=== PATIENT | female | born 1935 | race Hispanic/Latino ===

== ENCOUNTER 2017-12-25 11:39 | Emergency (ER) | payer OTHER, MEDICARE ==
[~2017-12-25 11:39] MED LIST: ALBU8.5H8 IH; AMLO2.5T PO; ASPI-555 PO; ATORVASTATIN PO; BRIM5DRO OU; ESOM40CA PO; LUMIGAN OU; MELO-108 PO; METOPROLOL PO; NITR0.4T SL; RANO500T2 PO; TOLT1TAB13 PO; TOLTERODINE PO; TRAM50TA4 PO
[2017-12-25 12:19] LABS: BASOPHILS % (AUTO) 0.5 % (0.0-5.0); HEMATOCRIT 33.7 % (36-48); LYMPHOCYTES % (AUTO) 16.5 % (21.0-51.0); MEAN CORPUSCULAR HEMOGLOBIN 33.5 pg (27.0-33.0); MEAN CORPUSCULAR VOLUME 95.7 fL (79-99); MONOCYTES % (AUTO) 6.8 % (3.0-13.0); NEUTROPHILS % (AUTO) 74.2 % (40.0-77.0); NUCLEATED RED BLOOD CELLS 0.1 % (0.0-0.19); PLATELET COUNT (AUTO) 143 K/uL (130-400); RED BLOOD CELL COUNT(AUTO) 3.53 MIL/uL (4.00-5.50); RED CELL DISTRIBUTION WIDTH 14.8 % (11.0-15.5); WHITE BLOOD COUNT (AUTO) 4.7 K/uL (4.8-10.8)
[2017-12-25 12:23] LABS: APPEARANCE,URINE Clear (CLEAR); BILIRUBIN,URINE Negative (NEGATIVE); COLOR,URINE Yellow (YELLOW); GLUCOSE, URINE (UA) Negative (NEGATIVE); KETONES,URINE Negative (NEGATIVE); LEUKOCYTE ESTERASE ,URINE Negative (NEGATIVE); NITRATE,URINE Negative (NEGATIVE); OCCULT BLOOD,URINE Negative (NEGATIVE); PH,URINE 5.5 (5.0-8.0); PROTEIN,URINE Negative (NEGATIVE); UROBILINOGEN,URINE 0.2 mg/dL (0.2-1.0)
[2017-12-25 12:28] LABS: CREATININE 1.3 mg/dL (0.5-1.5); POTASSIUM 4.6 mmol/L (3.5-5.1)
[2017-12-25 12:33] LABS: ALBUMIN 3.4 g/dL (3.5-5.0); BILIRUBIN,TOTAL 0.4 mg/dL (0.2-1.0); TOTAL PROTEIN, SERUM 7.2 g/dL (6.0-8.3)
[2017-12-25] MEDS ORDERED: KETOROLAC TROMETHAMINE 15MG/ML ONE (13:19)
[2017-12-25] MEDS ORDERED: ONDANSETRON HCL 4 MG/2 ML VIAL ONE (13:19)
[2017-12-25] MEDS ORDERED: MORPHINE SULFATE 2 MG/ML 1ML SYG ONE (13:20)
[2017-12-25] MEDS ORDERED: IOPAMIDOL-370 75 ML VIAL IV ONE (15:02)
== END 2017-12-25 17:09 | disposition home or self-care (01) ==
LOC: EDH 11:39
DX: R10.9 Unspecified abdominal pain (principal); L84 Corns and callosities; R35.0 Frequency of micturition; M54.9 Dorsalgia, unspecified; E78.5 Hyperlipidemia, unspecified; I10 Essential (primary) hypertension; Z90.710 Acquired absence of both cervix and uterus
CPT/HCPCS: 36415; 73620; 74177; 80053; 81003; 85025; 96374; 96375; 99285; J1885; J2405; Q9967

== ENCOUNTER → 2019-03-24 | Outpatient (CLI) | payer OTHER, MEDICARE ==
[~2019-03-24] MED LIST changes: -AMLO2.5T PO; +AMLO2.5T4 PO
== END | disposition home or self-care (01) ==
LOC: SHCH 10:48
PROVIDERS: ATTEND Internal Medicine Cardiovascular Disease
DX: I73.9 Peripheral vascular disease, unspecified (principal)
CPT/HCPCS: 93925

== ENCOUNTER 2019-08-04 10:59 | Emergency (ER) | payer OTHER, MEDICARE ==
[2019-08-04] MEDS ORDERED: SODIUM CHLORIDE 0.9% 1000ML 1,000 ML IV ONE (13:12)
[2019-08-04] MEDS ORDERED: ONDANSETRON HCL 4 MG/2 ML VIAL ONE (13:13)
[2019-08-04] MEDS ORDERED: MORPHINE SULFATE 2 MG/ML 1ML SYG ONE (13:14)
[2019-08-04] MEDS ORDERED: IOHEXOL-350 75 ML VIAL IV ONE (13:21)
[2019-08-04 13:22] LABS: BASOPHILS % (AUTO) 0.9 % (0.0-5.0); EOSINOPHILS % (AUTO) 2.7 % (0.0-8.0); HEMATOCRIT 32.8 % (36-48); LYMPHOCYTES % (AUTO) 18.2 % (21.0-51.0); MEAN CORPUSCULAR HEMOGLOBIN 32.6 pg (27.0-33.0); MEAN CORPUSCULAR HGB CONC 33.7 g/dL (32.0-36.0); MEAN CORPUSCULAR VOLUME 96.6 fL (79-99); MONOCYTES % (AUTO) 7.5 % (3.0-13.0); NEUTROPHILS % (AUTO) 70.7 % (40.0-77.0); NUCLEATED RED BLOOD CELLS 0.1 % (0.0-0.19); PLATELET COUNT (AUTO) 186 K/uL (130-400); RED BLOOD CELL COUNT(AUTO) 3.39 MIL/uL (4.00-5.50); RED CELL DISTRIBUTION WIDTH 15.2 % (11.0-15.5); WHITE BLOOD COUNT (AUTO) 4.4 K/uL (4.8-10.8)
[2019-08-04 13:28] LABS: CREATININE 1.2 mg/dL (0.5-1.5); POTASSIUM 4.7 mmol/L (3.5-5.1)
[2019-08-04 13:34] LABS: ALBUMIN 3.3 g/dL (3.5-5.0); BILIRUBIN,TOTAL 0.3 mg/dL (0.2-1.0); TOTAL PROTEIN, SERUM 7.1 g/dL (6.0-8.3)
[2019-08-04 13:47] LABS: INR 0.97 (0.85-1.15); PROTHROMBIN TIME 10.2 SEC (9.6-11.6)
[2019-08-04 14:02] LABS: APPEARANCE,URINE Clear (CLEAR); BILIRUBIN,URINE Negative (NEGATIVE); COLOR,URINE Yellow (YELLOW); GLUCOSE, URINE (UA) Negative (NEGATIVE); KETONES,URINE Negative (NEGATIVE); LEUKOCYTE ESTERASE ,URINE Negative (NEGATIVE); NITRATE,URINE Negative (NEGATIVE); OCCULT BLOOD,URINE Negative (NEGATIVE); PH,URINE 5.5 (5.0-8.0); PROTEIN,URINE Negative (NEGATIVE); UROBILINOGEN,URINE 0.2 mg/dL (0.2-1.0)
== END 2019-08-04 15:44 | disposition home or self-care (01) ==
LOC: EDH 10:59
DX: K57.90 Diverticulosis of intestine, part unspecified, without perforation or abscess without bleeding (principal); I10 Essential (primary) hypertension; E78.5 Hyperlipidemia, unspecified; Z90.710 Acquired absence of both cervix and uterus; Z98.890 Other specified postprocedural states
CPT/HCPCS: 36415; 71045; 74177; 80053; 81003; 83690; 85025; 85610; 85730; 96361; 96374; 96375; 99285; J2405; J7030; Q9967

== ENCOUNTER → 2020-09-11 | Outpatient (CLI) | payer OTHER, MEDICARE ==
[~2020-09-11] MED LIST changes: -ASPI-555 PO; +ASPI-556 PO; +IOHEXOL 350 MG/ML 100ML INFUS..BTL IV ONE
== END | disposition home or self-care (01) ==
LOC: RAH 08:44
PROVIDERS: ATTEND Internal Medicine Gastroenterology
DX: K44.9 Diaphragmatic hernia without obstruction or gangrene (principal); R10.84 Generalized abdominal pain; R18.8 Other ascites; K57.30 Diverticulosis of large intestine without perforation or abscess without bleeding
CPT/HCPCS: 74178; Q9967

== ENCOUNTER → 2021-03-27 | Outpatient (CLI) | payer OTHER, MEDICARE ==
[~2021-03-27] MED LIST changes: -IOHEXOL 350 MG/ML 100ML INFUS..BTL IV ONE
== END | disposition home or self-care (01) ==
LOC: RAH 12:07
PROVIDERS: ATTEND Internal Medicine
DX: S06.0X9A Concussion with loss of consciousness of unspecified duration, initial encounter (principal); G44.209 Tension-type headache, unspecified, not intractable; G31.89 Other specified degenerative diseases of nervous system; X58.XXXA Exposure to other specified factors, initial encounter; Y93.89 Activity, other specified; Y92.89 Other specified places as the place of occurrence of the external cause; Y99.8 Other external cause status
CPT/HCPCS: 70450

== ENCOUNTER 2021-09-28 09:54 | Observation (INO) | payer OTHER, MEDICARE ==
[~2021-09-28] VITALS: Ht 152.4 cm; Wt 65.8 kg
[2021-09-28 10:28] LABS: BASOPHILS % (AUTO) 0.6 % (0.0-5.0); EOSINOPHILS % (AUTO) 2.4 % (0.0-8.0); HEMATOCRIT 32.7 % (36-48); LYMPHOCYTES % (AUTO) 15.3 % (21.0-51.0); MEAN CORPUSCULAR HGB CONC 32.7 g/dL (32.0-36.0); MEAN CORPUSCULAR VOLUME 100.9 fL (79-99); NEUTROPHILS % (AUTO) 74.4 % (40.0-77.0); PLATELET COUNT (AUTO) 164 K/uL (130-400); RED BLOOD CELL COUNT(AUTO) 3.24 MIL/uL (4.00-5.50); RED CELL DISTRIBUTION WIDTH 13.6 % (11.0-15.5); WHITE BLOOD COUNT (AUTO) 7.1 K/uL (4.8-10.8)
[2021-09-28 10:47] LABS: CREATININE 1.3 mg/dL (0.5-1.5); POTASSIUM 4.9 mmol/L (3.5-5.1)
[2021-09-28 10:52] LABS: ALBUMIN 3.5 g/dL (3.5-5.0); BILIRUBIN,TOTAL 0.4 mg/dL (0.2-1.0); TOTAL PROTEIN, SERUM 7.1 g/dL (6.0-8.3)
[2021-09-28 10:59] LABS: APPEARANCE,URINE Clear (CLEAR); BILIRUBIN,URINE Negative (NEGATIVE); COLOR,URINE Yellow (YELLOW); GLUCOSE, URINE (UA) Negative (NEGATIVE); KETONES,URINE Negative (NEGATIVE); LEUKOCYTE ESTERASE ,URINE Trace (NEGATIVE); NITRATE,URINE Negative (NEGATIVE); OCCULT BLOOD,URINE Negative (NEGATIVE); PH,URINE 6.5 (5.0-8.0); PROTEIN,URINE Trace mg/dL (NEGATIVE); UROBILINOGEN,URINE 0.2 mg/dL (0.2-1.0)
[2021-09-28 11:06] LABS: BACTERIA,URINE Many /HPF (None Seen); RBC,URINE 0-1 /HPF (0-1); SQUAMOUS EPITHELIAL CELL,UR Rare /HPF (0-2)
[2021-09-28] MEDS ORDERED: ASPIRIN 325MG TAB PO ONE (11:30)
[2021-09-28] MEDS ORDERED: NITROGLYCERIN 50MG/D5W 250ML 250 BOT IV SCH (11:30)
[2021-09-28] MEDS ORDERED: ACETAMINOPHEN 325 MG TAB ONE (11:38)
[2021-09-28] MEDS ORDERED: ACETAMINOPHEN 325 MG TAB PO ONE (12:00)
[2021-09-28] MEDS ORDERED: METOPROLOL TARTRATE 1 MG/ML 5ML VIAL IV SCH (12:30)
[2021-09-28] MEDS ORDERED: FUROSEMIDE 20MG VIAL IV SCH (12:30)
[2021-09-28] MEDS ORDERED: KETOROLAC 30MG VIAL (30MG/ML) ONE (13:29)
[2021-09-28] MEDS ORDERED: FERS325 PO (14:47)
[2021-09-28] MEDS ORDERED: GABA-529 PO (14:47)
[2021-09-28] MEDS ORDERED: TRAM50TA4 PO (14:47)
[2021-09-28] MEDS ORDERED: APIX5TAB PO (14:47)
[2021-09-28] MEDS ORDERED: CILO50TA PO (14:47)
[2021-09-28] MEDS ORDERED: LUBI8CAP PO (14:47)
[2021-09-28] MEDS ORDERED: MULT-1258 PO (14:47)
[2021-09-28] MEDS ORDERED: ISOS30TA92 PO (14:47)
[2021-09-28] MEDS ORDERED: ACETAMINOPHEN 325 MG TAB PO PRN (15:00)
[2021-09-28] MEDS ORDERED: ONDANSETRON 4MG TABLET PO PRN (15:00)
[2021-09-28] MEDS: ASPIRIN 81MG CHEW TAB PO SCH (15:18)
[2021-09-28] MEDS: LISINOPRIL 10 MG TABLET PO SCH (15:57)
[2021-09-28] MEDS ORDERED: LISINOPRIL 10 MG TABLET PO SCH (16:00)
[2021-09-28] MEDS: METOPROLOL TARTRATE 50 MG TAB PO SCH (20:59)
[2021-09-29 03:13] LABS: CREATINE KINASE, TOTAL 61 U/L (21-232); MYOGLOBIN 67 ng/mL (10-92)
[2021-09-29 06:52] LABS: BASOPHILS % (AUTO) 0.3 % (0.0-5.0); EOSINOPHILS % (AUTO) 2.3 % (0.0-8.0); HEMATOCRIT 31.2 % (36-48); LYMPHOCYTES % (AUTO) 15.7 % (21.0-51.0); MEAN CORPUSCULAR HEMOGLOBIN 32.8 pg (27.0-33.0); MEAN CORPUSCULAR VOLUME 99.4 fL (79-99); MONOCYTES % (AUTO) 7.1 % (3.0-13.0); NEUTROPHILS % (AUTO) 74.2 % (40.0-77.0); PLATELET COUNT (AUTO) 170 K/uL (130-400); RED BLOOD CELL COUNT(AUTO) 3.14 MIL/uL (4.00-5.50); RED CELL DISTRIBUTION WIDTH 13.7 % (11.0-15.5)
[2021-09-29 07:08] LABS: CREATININE 1.6 mg/dL (0.5-1.5); POTASSIUM 4.5 mmol/L (3.5-5.1)
[2021-09-29] MEDS ORDERED: NITROGLYCERIN 50MG/D5W 250ML 1 BOT ONE (08:26)
[2021-09-29] MEDS: ASPIRIN 81MG CHEW TAB PO SCH (09:30)
[2021-09-29] MEDS: METOPROLOL TARTRATE 50 MG TAB PO SCH ×2 (09:30→21:00)
[2021-09-29] MEDS: ENOXAPARIN SODIUM 40 MG/0.4 ML SYRINGE SQ SCH (09:30)
[2021-09-29] MEDS: LISINOPRIL 10 MG TABLET PO SCH (09:30)
[2021-09-29] MEDS ORDERED: HYDRALAZINE 20MG/ML VIAL ONE (11:32)
[2021-09-29] MEDS ORDERED: HYDRALAZINE 20MG/ML VIAL IV SCH (12:00)
[2021-09-29] MEDS ORDERED: FUROSEMIDE 20MG VIAL IV SCH (13:00)
[2021-09-29] MEDS ORDERED: AMLODIPINE 5 MG TAB ONE (15:56)
[2021-09-29] MEDS: CEFUROXIME AXETIL 250 MG TABLET PO SCH (16:29)
[2021-09-30] MEDS: CEFUROXIME AXETIL 250 MG TABLET PO SCH ×2 (03:17→14:28)
[2021-09-30] MEDS ORDERED: HYDRALAZINE 20MG/ML VIAL ONE (06:41)
[2021-09-30] MEDS: LISINOPRIL 20 MG TABLET PO SCH (09:18)
[2021-09-30] MEDS: ASPIRIN 81MG CHEW TAB PO SCH (09:18)
[2021-09-30] MEDS: ENOXAPARIN SODIUM 40 MG/0.4 ML SYRINGE SQ SCH (09:18)
[2021-09-30] MEDS: AMLODIPINE 5 MG TAB PO SCH (09:18)
[2021-09-30] MEDS: METOPROLOL TARTRATE 50 MG TAB PO SCH ×2 (09:18→20:48)
[2021-09-30] MEDS: LACTULOSE 20 GM/30 ML UDCUP PO SCH ×3 (11:52→23:30)
[2021-09-30] MEDS ORDERED: METOPROLOL TARTRATE 50 MG TAB PO ONE (22:00)
[2021-10-01] MEDS: CEFUROXIME AXETIL 250 MG TABLET PO SCH ×2 (03:27→14:50)
[2021-10-01] MEDS: LACTULOSE 20 GM/30 ML UDCUP PO SCH ×2 (05:30→11:30)
[2021-10-01] MEDS ORDERED: HYDRALAZINE 20MG/ML VIAL IV SCH (08:00)
[2021-10-01 08:17] LABS: HEMATOCRIT 36.9 % (36-48); MEAN CORPUSCULAR HEMOGLOBIN 32.7 pg (27.0-33.0); MEAN CORPUSCULAR HGB CONC 32.5 g/dL (32.0-36.0); MEAN CORPUSCULAR VOLUME 100.5 fL (79-99); PLATELET COUNT (AUTO) 175 K/uL (130-400); RED BLOOD CELL COUNT(AUTO) 3.67 MIL/uL (4.00-5.50); RED CELL DISTRIBUTION WIDTH 13.6 % (11.0-15.5); WHITE BLOOD COUNT (AUTO) 5.8 K/uL (4.8-10.8)
[2021-10-01 08:29] LABS: CREATININE 1.2 mg/dL (0.5-1.5); POTASSIUM 4.2 mmol/L (3.5-5.1)
[2021-10-01 08:33] LABS: ALBUMIN 3.2 g/dL (3.5-5.0); BILIRUBIN,TOTAL 0.5 mg/dL (0.2-1.0); MAGNESIUM 2.2 mg/dL (1.80-2.40); TOTAL PROTEIN, SERUM 6.9 g/dL (6.0-8.3)
[2021-10-01 09:00] LABS: EOSINOPHILS % (MANUAL) 3 % (1-6); LYMPHOCYTES % (MANUAL) 29 % (22-44); MONOCYTES % (MANUAL) 4 % (2-9); SEGMENTED NEUTROPHILS % 64 % (40-70)
[2021-10-01 09:01] LABS: PLATELET MORPHOLOGY COMMENT ADEQUATE
[2021-10-01 09:04] LABS: MAN.DIFF COMMENT-IMPRESSION MANUAL DIFFERENTIAL
[2021-10-01] MEDS: LISINOPRIL 20 MG TABLET PO SCH (09:04)
[2021-10-01] MEDS: ENOXAPARIN SODIUM 40 MG/0.4 ML SYRINGE SQ SCH (09:04)
[2021-10-01] MEDS: AMLODIPINE 5 MG TAB PO SCH (09:04)
[2021-10-01] MEDS: ASPIRIN 81MG CHEW TAB PO SCH (09:04)
[2021-10-01] MEDS: METOPROLOL TARTRATE 50 MG TAB PO SCH (09:04)
[2021-10-01 13:30] VITALS: BP 147/82
== END 2021-10-01 15:30 | disposition home or self-care (01) ==
LOC: EDH 09:54 → EDHIP 13:00 → INTOOBSV 13:00 → EDHIP 10-01 15:30
PROVIDERS: ADMIT Internal Medicine Infectious Disease; ATTEND Internal Medicine Infectious Disease
DX: I16.1 Hypertensive emergency (principal); I48.91 Unspecified atrial fibrillation; N30.90 Cystitis, unspecified without hematuria; E87.6 Hypokalemia; D64.9 Anemia, unspecified; M19.90 Unspecified osteoarthritis, unspecified site; E78.5 Hyperlipidemia, unspecified; I25.10 Atherosclerotic heart disease of native coronary artery without angina pectoris; E78.00 Pure hypercholesterolemia, unspecified; I44.7 Left bundle-branch block, unspecified; I87.2 Venous insufficiency (chronic) (peripheral); K59.00 Constipation, unspecified; R00.2 Palpitations; Z95.5 Presence of coronary angioplasty implant and graft; Z96.653 Presence of artificial knee joint, bilateral; Z79.01 Long term (current) use of anticoagulants; Z79.82 Long term (current) use of aspirin; Z79.899 Other long term (current) drug therapy; Z98.890 Other specified postprocedural states
CPT/HCPCS: 36415 ×3; 70450; 71045; 80048; 80053 ×2; 80061; 81001; 82550 ×3; 83735 ×2; 83835; 83874 ×2; 83880; 84484 ×3; 85025 ×3; 85651; 87077; 87088; 87186; 93005 ×2; 96365; 96366 ×2; 96372 ×3; 96375 ×2; 96376; 99285; J0360 ×2; J1650 ×3; J1885; J1940 ×2; J3490 ×2; Q0162; G0378

== ENCOUNTER → 2023-06-25 | Outpatient (CLI) | payer OTHER, MEDICARE ==
[~2023-06-25] MED LIST changes: -AMLO2.5T4 PO; +APIX5TAB PO; -BRIM5DRO OU; +CILO50TA2 PO; +FERS325 PO; +GABA-529 PO; +ISOS30TA92 PO; +LUBI8CAP PO; -LUMIGAN OU; -MELO-108 PO; +MULT-1258 PO; -NITR0.4T SL; -TOLTERODINE PO
== END | disposition home or self-care (01) ==
LOC: RAH 08:13
PROVIDERS: ATTEND Family Medicine
DX: I70.0 Atherosclerosis of aorta (principal); R10.9 Unspecified abdominal pain; R10.2 Pelvic and perineal pain; Z90.710 Acquired absence of both cervix and uterus
CPT/HCPCS: 76700; 76856